=== PATIENT | female | born 1945 | race Caucasian/White ===

== ENCOUNTER → 2016-12-11 | Outpatient (CLI) | payer OTHER | LOC: MAMO 15:09 | DX: Z12.31 Encounter for screening mammogram for malignant neoplasm of breast (principal) | CPT/HCPCS: G0202 ==

== ENCOUNTER 2021-07-30 14:15 | Emergency (ER) | payer MEDICARE ==
[2021-07-30 15:57] LABS: HEMOGLOBIN 17.3 gm/dl (12.3-15.3); RED BLOOD COUNT 6.13 M/UL (4.00-5.10); WHITE BLOOD COUNT 5.8 K/UL (4.5-11.0)
[2021-07-30 16:12] LABS: BUN/CREATININE RATIO 16 (0-10)
[2021-07-30] MEDS ORDERED: ASPIRIN CHEWABL81 MG PO (18:32)
== END 2021-07-30 18:48 | disposition home or self-care (01) ==
LOC: ER1 14:15
PROVIDERS: Emergency Medicine
DX: R20.0 Anesthesia of skin (principal); Z90.710 Acquired absence of both cervix and uterus
CPT/HCPCS: 70450; 70496; 70498; 71045; 80053; 82550; 82553; 83874; 84484; 85025; 85610; 85730; 93005; 99284; Q9967

== ENCOUNTER → 2021-08-17 | Outpatient (CLI) | payer MEDICARE ==
[~2021-08-17] MED LIST: ASPIRIN CHEWABL81 MG PO
== END ==
LOC: EXRD 08:01
DX: Z78.0 Asymptomatic menopausal state (principal); M85.89 Other specified disorders of bone density and structure, multiple sites
CPT/HCPCS: 77080